=== PATIENT | female | born 1965 | race Caucasian/White ===

== ENCOUNTER 2019-06-04 05:58 | Emergency (ER) | payer MEDICAID ==
[~2019-06-04] VITALS: Ht 154.9 cm; Wt 54.0 kg
--- NOTE | 2019-06-04 06:11 | NUR ---
RECEIVED PT FR HOME, AMBULATORY ABLE TO SPEAK CLEAR AND COMPLETE SENTENCES C/O CHEST PN INTERMITTENTLY OCCURING FOR THE PAST FEW DAYS. STATES THE PN STARTED 3HRS AGO POINTING TO LEFT CHEST RADIATING TO L SHOULDER PT IS CRYING AND ANXIOUS DESPITE DENYING H/O CARDIAC DISEASES AND ANXIETY DENIES TRAUMA NOR SURGERY TO THE SITE DENIES INTAKE OF MEDS/RECREATIONAL MEDS
[2019-06-04] MEDS ORDERED: ASPIRIN 81 MG TAB.CHEW PO ONE (06:30)
[2019-06-04 06:41] LABS: BASOPHILS % (AUTO) 0.8 % (0.0-2.0); EOSINOPHILS # (AUTO) 0.3 K/uL (0.0-0.7); EOSINOPHILS % (AUTO) 4.7 % (0.0-7.0); HEMATOCRIT 39.3 % (31.2-41.9); HEMOGLOBIN 13.1 g/dL (10.9-14.3); LYMPHOCYTES # (AUTO) 2.1 K/uL (20.0-40.0); LYMPHOCYTES % (AUTO) 36.3 % (20.5-51.5); MEAN CORPUSCULAR HEMOGLOBIN 30.9 uug (24.7-32.8); MEAN CORPUSCULAR HGB CONC 33 g/dL (32.3-35.6); MEAN CORPUSCULAR VOLUME 92.4 fL (75.5-95.3); MONOCYTES # (AUTO) 0.4 K/uL (2.0-10.0); MONOCYTES % (AUTO) 6.5 % (0.0-11.0); NEUTROPHILS % (AUTO) 51.7 % (38.5-71.5); PLATELET COUNT (AUTO) 192 K/uL (179-408); RED BLOOD CELL COUNT(AUTO) 4.25 MIL/uL (3.63-4.92); WHITE BLOOD COUNT (AUTO) 5.8 K/uL (3.8-11.8)
[2019-06-04] MEDS ORDERED: ASPIRIN 81 MG TAB.CHEW ONE (06:44)
--- NOTE | 2019-06-04 06:45 | NUR ---
PT BACK FROM CT ACCOMPANIED BY VEGETABLE FARM WORKER [id number] UP, BED AT LOWEST POSITION PT IS CALMER, KEPT WARM AND COMFORTABLE
[2019-06-04 06:46] LABS: CREATININE 0.8 mg/dL (0.6-1.3); POTASSIUM 3.6 mmol/L (3.5-5.1)
--- NOTE | 2019-06-04 06:59 | NUR ---
HAND AND SBAR GIVEN TO INCOMING DAY SHIFT RN (GIANCARLO) PT NAD MONITORED ACCORDINGLY
[2019-06-04 07:02] LABS: BILIRUBIN,DIRECT 0.1 mg/dL (0.0-0.2); BILIRUBIN,TOTAL 0.5 mg/dL (0.2-1.0); TOTAL PROTEIN, SERUM 7.3 g/dL (6.4-8.2)
[2019-06-04] MEDS ORDERED: IV NORMAL SALINE 1000 ML BAG IV ONE (07:30)
--- NOTE | 2019-06-04 09:45 | NUR ---
Community Education Specialist at bedside, pt refused blood draw. Pt's saline lock removed (cath intact) per pt request.
--- NOTE | 2019-06-04 11:07 | NUR ---
PT WAS RE-EVALUATED BY DR ROSENBERG. PT WAS D/C TO HOME. D/C INSTRUCTIONS GIVEN TO THE PT.PT DENIES PAIN. NO S/S OF DISTRESS AT THIS TIME.
[2019-06-04 11:08] VITALS: BP 125/68
== END 2019-06-04 11:08 | disposition home or self-care (01) ==
LOC: ER 06:00
DX: R42 Dizziness and giddiness (principal); R51 Headache; R07.89 Other chest pain; R06.02 Shortness of breath; F17.200 Nicotine dependence, unspecified, uncomplicated
CPT/HCPCS: 36415; 70030-TC; 70450; 71045; 85025; 93005; A4663; J7030